=== PATIENT | female | born 1995 | race Hispanic/Latino ===

== ENCOUNTER 2017-06-13 09:04 | Emergency (ER) | payer BC, OTHER ==
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
[2017-06-13 10:10] VITALS: BP 125/88; TEMP 97.8; O2SAT 99
== END 2017-06-13 09:45 | disposition home or self-care (01) ==
LOC: ER 09:04
DX: Z00.00 Encounter for general adult medical examination without abnormal findings (principal); E11.9 Type 2 diabetes mellitus without complications; V49.40XA Driver injured in collision with unspecified motor vehicles in traffic accident, initial encounter; Z79.4 Long term (current) use of insulin
CPT/HCPCS: 99284